=== PATIENT | female | born 1985 | race Asian ===

== ENCOUNTER 2017-03-15 11:45 | Outpatient (CLI) | payer OTHER ==
[2017-03-15 12:24] LABS: ALBUMIN 4.3 g/dL (3.4-5.0); ANION GAP 7.7 (8-16); CARBON DIOXIDE 30.3 mmol/L (21-32); CHOL/HDL RATIO 1.8 (1-4.5); CREATININE 0.6 mg/dL (0.6-1.3); THYROID STIMULATING HORMONE 1.25 uIU/mL (0.34-3.74); TOTAL BILIRUBIN 0.4 mg/dL (0.0-1.0)
[2017-03-15 12:25] LABS: HEMOGLOBIN 12.1 g/dL (12.0-16.0)
[2017-03-15 12:29] LABS: HEMATOCRIT 37.9 % (36-48); MEAN CORPUSCULAR HEMOGLOBIN 26 pg (27-31); MEAN CORPUSCULAR HGB CONC 32 g/dL (33-37); MEAN CORPUSCULAR VOLUME 80 fL (80-94); PLATELET COUNT (AUTO) 243 K/uL (140-450); RED BLOOD CELL COUNT(AUTO) 4.76 MIL/uL (4.20-5.40); RED CELL DISTRIBUTION WIDTH 12.6 % (11.6-13.7); WHITE BLOOD COUNT (AUTO) 5.6 K/uL (4.8-10.8)
[2017-03-15 12:50] LABS: EOSINOPHILS % (MANUAL) 2 % (0-4); LYMPHOCYTES % (MANUAL) 39 % (20-46); MONOCYTES % (MANUAL) 5 % (5-12)
== END 2017-03-15 20:45 | disposition home or self-care (01) ==
LOC: MLB 11:45
PROVIDERS: ATTEND Internal Medicine Geriatric Medicine
DX: Z76.89 Persons encountering health services in other specified circumstances (principal); E55.9 Vitamin D deficiency, unspecified
CPT/HCPCS: 36415; 80053; 82306; 84443; 85025

== ENCOUNTER 2017-08-10 11:04 | Outpatient (CLI) | payer OTHER ==
[2017-08-10 11:23] LABS: HEMATOCRIT 39.3 % (36-48); HEMOGLOBIN 12.5 g/dL (12.0-16.0); MEAN CORPUSCULAR HEMOGLOBIN 25 pg (27-31); MEAN CORPUSCULAR HGB CONC 32 g/dL (33-37); MEAN CORPUSCULAR VOLUME 78.4 fL (80-94); PLATELET COUNT (AUTO) 245 K/uL (140-450); RED BLOOD CELL COUNT(AUTO) 5.01 MIL/uL (4.20-5.40); RED CELL DISTRIBUTION WIDTH 12.5 % (11.6-13.7); WHITE BLOOD COUNT (AUTO) 4.9 K/uL (4.8-10.8)
[2017-08-10 11:49] LABS: ALBUMIN 4.1 g/dL (3.4-5.0); ANION GAP 12.6 (8-16); CARBON DIOXIDE 27.4 mmol/L (21-32); CHOL/HDL RATIO 1.9 (1-4.5); CREATININE 0.6 mg/dL (0.6-1.3); THYROID STIMULATING HORMONE 1.18 uIU/mL (0.34-3.74); TOTAL BILIRUBIN 0.4 mg/dL (0.0-1.0)
[2017-08-10 13:15] LABS: LYMPHOCYTES % (MANUAL) 36 % (20-46); MONOCYTES % (MANUAL) 5 % (5-12)
== END 2017-08-10 20:36 | disposition home or self-care (01) ==
LOC: MLB 11:04
PROVIDERS: ATTEND Family Medicine
DX: E55.9 Vitamin D deficiency, unspecified (principal); N94.6 Dysmenorrhea, unspecified
CPT/HCPCS: 36415; 80053; 82306; 84443; 85025